=== PATIENT | female | born 1970 | race Asian ===

== ENCOUNTER 2018-04-07 19:42 | Emergency (ER) | payer MEDICAID ==
[2018-04-07] MEDS ORDERED: Ibuprofen 800 MG Tab PO ONE (20:13)
--- NOTE | 2018-04-07 20:47 | EDM.PDOC ---
ED HPI GENERAL MEDICAL PROBLEM - General Chief Complaint: General Stated Complaint: SICK Time Seen by Provider: 04/07/18 20:20 Source of Information: Reports: Patient, Family, RN, RN Notes Reviewed History Limitations: Reports: Language Barrier (French, daughter speaks [place] well) - History of Present Illness INITIAL COMMENTS - FREE TEXT/NARRATIVE: Pt to ER with daughter with c/o fever and chills beginning this morning. Patient states she has had some chest pains/back pains with cough, productive cough with white sputum, and a "burning" sensation in the throat. Patient states she has a terrible headache. Denies N/V/D, SOB. Pt speaks little broken [place], daughter in the room speaks fluent [place]. Onset: Today, Sudden Associated Symptoms: Reports: Chest Pain, cough w sputum, Fever/Chills, Headaches, Loss of Appetite, Malaise Treatments [employer]: Reports: Acetaminophen Generalized Pain Score (Numeric/FACES): 6 - Related Data Allergies Allergy/AdvReac Type Severity Reaction Status Date / Time seafoods Allergy Itching Uncoded 04/07/18 20:11 Home Meds: Home Meds . [No Known Home Meds] 04/07/18 [History] Past Medical History - Past Health History Medical/Surgical History: Denies Medical/Surgical History Social & Family History - Family History Oncologic: Reports: Other (See Below) Other Oncologic Family History: Stomach - Tobacco Use Smoking Status *Q: Never Smoker Second Hand Smoke Exposure: No - Caffeine Use Caffeine Use: Reports: None - Recreational Drug Use Recreational Drug Use: No ED ROS GENERAL - Review of Systems Review Of Systems: ROS reveals no pertinent complaints other than HPI. ED EXAM, GENERAL - Physical Exam Exam: See Below Exam Limited By: Language Barrier General Appearance: Alert, WD/WN, Mild Distress Eye Exam: Bilateral Eye: EOMI, Normal Inspection Ears: Normal External Exam, Hearing Grossly Normal Nose: Normal Inspection Throat/Mouth: Normal Inspection, Normal Lips, Normal Teeth, Normal Gums, Normal Oropharynx, Normal Voice, No Airway Compromise Head: Atraumatic, Normocephalic Neck: Normal Inspection, Supple, Non-Tender, Full Range of Motion Respiratory/Chest: No Respiratory Distress, Lungs Clear, Normal Breath Sounds, No Accessory Muscle Use, Chest Non-Tender Cardiovascular: Normal Peripheral Pulses, Regular Rate, Rhythm, No Edema, No Gallop, No JVD, No Murmur, No Rub Peripheral Pulses: 2+: Radial (L), Radial (R) GI/Abdominal: Normal Bowel Sounds, Soft, Non-Tender, No Organomegaly, No Distention, No Abnormal Bruit, No Mass, Pelvis Stable (Female) Exam: Deferred Rectal (Female) Exam: Deferred Back Exam: Normal Inspection, Full Range of Motion Extremities: Normal Inspection, Normal Range of Motion, Non-Tender, No Pedal Edema, Normal Capillary Refill Neurological: Alert, Oriented, CN II-XII Intact, Normal Cognition, Normal Gait, Normal Reflexes, No Motor/Sensory Deficits Psychiatric: Normal Affect, Normal Mood Skin Exam: Warm, Dry, Intact, Normal Color, No Rash Lymphatic: No Adenopathy Course - Vital Signs Last Recorded V/S: Last Vital Signs Temp 101.6 F H 04/07/18 20:18 Pulse 104 H 04/07/18 19:45 Resp 19 04/07/18 19:45 BP 107/59 L 04/07/18 19:45 Pulse Ox 99 04/07/18 19:45 - Orders/Labs/Meds Orders: Active Orders 24 hr Category Date Time Status CULTURE STREP A CONFIRMATION [] Stat Lab 04/07/18 20:01 Results STREP SCRN A RAPID W CULT CONF [] Stat Lab 04/07/18 20:01 Results Oseltamivir [Tamiflu] Med 04/07/18 21:19 Once 75 mg PO ONETIME ONE Labs: Rapid Strep: Negative Influenza A: Positive Influenza B: Negative Meds: Medications Discontinued Medications Generic Name Dose Route Start Last Admin Trade Name Partha PRN Reason Stop Dose Admin Ibuprofen 800 mg 04/07/18 20:13 04/07/18 20:18 Motrin PO 04/07/18 20:14 800 mg ONETIME ONE Administration Departure - Departure Time of Disposition: 21:16 Disposition: Home, Self-Care 01 Condition: Fair Clinical Impression: Influenza A - Discharge Information *PRESCRIPTION DRUG MONITORING PROGRAM REVIEWED*: No *COPY OF PRESCRIPTION DRUG MONITORING REPORT IN PATIENT SAUL: No Instructions: Influenza, Adult, [id number], Viral Respiratory Infection, Easy -To-Read Forms: ED Department Discharge Additional Instructions: Continue using Tylenol and Ibuprofen (Motrin) as directed for fever and chills, pain/headache Ibuprofen 400-800mg every 6-8 hours as needed (last taken at 8:15pm today) Tylenol (acetaminophen) 500-625mg every 4 hours as needed. Rest Stay home until fever free for 24 hours without tylenol or ibuprofen Drink plenty of fluids Good hand washing at home to prevent spread of influenza to family members RX: Tamiflu - My Orders Last 24 Hours: My Active Orders 04/07/18 20:01 CULTURE STREP A CONFIRMATION [RM] Stat STREP SCRN A RAPID W CULT CONF [RM] Stat 04/07/18 21:19 Oseltamivir [Tamiflu] 75 mg PO ONETIME ONE - Assessment/Plan Last 24 Hours: My Active Orders 04/07/18 20:01 CULTURE STREP A CONFIRMATION [RM] Stat STREP SCRN A RAPID W CULT CONF [RM] Stat 04/07/18 21:19 Oseltamivir [Tamiflu] 75 mg PO ONETIME ONE
[2018-04-07] MEDS ORDERED: Oseltamivir 75 MG Cap PO ONE (21:19)
== END 2018-04-07 21:33 | disposition home or self-care (01) ==
LOC: DL.ED 19:42
DX: J10.1 Influenza due to other identified influenza virus with other respiratory manifestations (principal); Z91.013 Allergy to seafood
CPT/HCPCS: 87081; 87430; 87804; 99283; A9270

== ENCOUNTER 2019-07-04 05:32 | Day surgery (SDC) | payer OTHER ==
[2019-07-04] MEDS ORDERED: Midazolam 1 MG/ML 2 ML SDV IV ONE ×5 (05:33→06:43)
[2019-07-04] MEDS ORDERED: fentaNYL 100 MCG/2 ML SDV IV ONE ×3 (05:33→06:31)
[2019-07-04] MEDS ORDERED: Dextrose 5%-0.45% NaCl 1,000 ML IV SCH (05:45)
[2019-07-04] MEDS ORDERED: Midazolam 1 MG/ML 2 ML SDV ONE (05:57)
[2019-07-04] MEDS ORDERED: fentaNYL 100 MCG/2 ML SDV ONE (05:57)
[2019-07-04] MEDS ORDERED: Sodium Chloride 0.9% 500 ML IV ONE (07:45)
--- NOTE | 2019-07-04 08:42 | OR ---
DATE: 07/04/2019 PROCEDURE: Total colonoscopy. INSTRUMENT USED: PCF-H190DL Olympus video colonoscope. PREMEDICATIONS: Fentanyl 100 mcg intravenous, Versed 2.5 mg intravenous, nasal O2 cannula. The procedure was done under pulse oximetry, BP recording, and case monitor. INDICATION: The patient with persistent constipation and abdominal pain, unexplained and not responsive to medical measures. Colonoscopic examination is done for detection of any polypoid lesions and removal, endoscopic hemostasis therapy if needed. DESCRIPTION OF PROCEDURE: Initial rectal exam was unremarkable. Rigid anoscopy was normal. The colonoscope was passed with ease up to the ileocecal area. Photographs were taken of the normal-appearing cecum identified by landmarks of appendiceal orifice and double-bulged ileocecal folds. No bleeding was noted from any of the visualized areas at the commencement of the examination. No stricture. No vascular ectasia. No large isolated ulcerations seen. No evidence of diffuse inflammatory bowel disease in the form of friability, contact bleeding, or ulcerations. No polyp or tumor mass identified. Probing the proximal sides of folds and flexures using adequate distention and clearing up the stool material, withdrawal of the scope was made. Cecum to rectum time over 6 minutes. No bleeding was noted from any of the visualized areas at the completion of examination. IMPRESSION: Normal study. The patient tolerated the procedure well. [facility] /[id number]
== END 2019-07-04 08:40 | disposition home or self-care (01) ==
LOC: DL.ENDO 05:32
PROVIDERS: ATTEND Internal Medicine Gastroenterology
DX: K59.00 Constipation, unspecified (principal); K27.9 Peptic ulcer, site unspecified, unspecified as acute or chronic, without hemorrhage or perforation; K58.9 Irritable bowel syndrome, unspecified
CPT/HCPCS: G0121; J2250; J3010; J7040; J7042